=== PATIENT | female | born 1980 | race Caucasian/White ===

== ENCOUNTER 2017-03-11 12:17 | Emergency (ER) | payer OTHER ==
[2017-03-11 12:26] VITALS: BP 128/76; PULSE 50; RESP 14; TEMP 98.2; O2SAT 96
--- NOTE | 2017-03-11 12:41 | UCPHY ---
H & P Patient Type: New Chief Complaint Nursing Narrative: Left 4th finger inj smashed between tables. throbbing at tip. bruising noted. 9/10 PAIN. 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 She states that she smashed in between 2 tables at work. This happened about an hour ago. She took ibuprofen prior to coming. She is concerned about fracture. She also has bruising and a subungual hematoma. REVIEW OF SYSTEMS: Constitutional: denies: chills, fever, recent illness, recent injury EENTM: denies: blurred vision, double vision, nose congestion Respiratory: denies: cough, shortness of breath Cardiac: denies: chest pain, irregular heart rate, lightheadedness, palpitations Gastrointestinal/Abdominal: denies: abdominal pain, diarrhea, nausea, vomiting, blood streaked stools Genitourinary: denies: dysuria, frequency, hematuria, pain Musculoskeletal: See HPI Skin: denies: lesions, rash, jaundice, bruising Neurological: denies: headache, numbness, paresthesia, tingling, dizziness, weakness Hematologic/Lymphatic: denies: blood clots, easy bleeding, easy bruising Immunologic/allergic: denies: HIV/AIDS, transplant EXAM: GENERAL: Well-appearing, well-nourished and in no acute distress. HEAD: Atraumatic, normocephalic. EYES: Pupils equal round and reactive to light, extraocular movements intact, sclera anicteric, conjunctiva are normal. ENT: TMs normal, nares patent, oropharynx clear without exudates. Moist mucous membranes. NECK: Normal range of motion, supple without lymphadenopathy or JVD. LUNGS: Breath sounds clear to auscultation bilaterally and equal. No wheezes rales or rhonchi. HEART: Regular rate and rhythm without murmurs, rubs or gallops. ABDOMEN: Soft, nontender, normoactive bowel sounds. No guarding, no rebound. No masses appreciated. BACK: No CVA tenderness, no spinal tenderness, step-offs or deformities EXTREMITIES: Bruising to distal phalanx of left ring finger. Small subungual hematoma, no avulsion laceration NEUROLOGICAL: Cranial nerves II through XII grossly intact. Normal speech, normal gait. 5/5 strength, normal movement in all extremities, normal sensation PSYCH: Normal mood, normal affect. SKIN: Warm, dry, normal turgor, no visible rashes or lesions. Source: Patient Exam Limitations: No limitations - Personal History LMP (Females 10-55): 8-14 Days Ago - Medical/Surgical History Hx Asthma: No Hx Chronic Respiratory Disease: No Hx Diabetes: No Hx Cardiac Disease: No Hx Renal Disease: No Hx Cirrhosis: No Hx Alcoholism: No Other PMH: PCP Geovani. denies surgery - Family History Significant Family History: No pertinent family hx - Social History Smoking Status: Never smoked Alcohol Use: Sober Drug Use: None Constitutional: Initial Vital Signs Temperature (C) 36.8 C 03/11/17 12:20 Heart Rate 50 L 03/11/17 12:20 Respiratory Rate 14 03/11/17 12:20 Blood Pressure 128/76 H 03/11/17 12:20 O2 Sat (%) 96 03/11/17 12:20 O2 Delivery Mode Room Air Allergies/Adverse Reactions: No Known Allergies Allergy (Unverified 03/11/17 12:26) Home Medications: Medication Instructions Recorded NK [No Known Home Meds] 03/11/17 Medical Decision Making - Diagnostics Imaging: Imaging Impressions Finger X-Ray 03/11/17 12:27 Impression: Transverse nondisplaced fracture, distal phalanx, left fourth finger. Procedures: Finger trephination Patient's fingernail was trephinated twice with a cautery device. She tolerated the procedure well. She felt immediate improvement of pain. ED Course/Re-evaluation: patient has a small tuft fracture. Her fingernails in place for stenting. She does not require suture repair. Her fingernail was trephinated. She tolerated this well. Discussed follow-up and continued treatment. Differential Diagnosis: Partial list of the Differential diagnosis considered include but were not limited to; subungual hematoma, tuft fracture, nail bed laceration and although unlikely based on the history and physical exam, I also considered dislocation, infection, laceration. I discussed these differential diagnoses and the plan with the patient as well as the usual and expected course. The patient understands that the diagnosis is provisional and that in medicine we are not always correct and that further workup is often warranted. Usual and customary warnings were given. All of the patient's questions were answered. The patient was instructed to return to the emergency department should the symptoms at all worsen or return, otherwise to followup with the physician as we discussed. Departure - Departure Disposition: Home, Routine, Self-Care Clinical Impression: Subungual hematoma Distal phalanx or phalanges, closed fracture Qualifiers: Encounter type: initial encounter Finger: ring finger Fracture alignment: nondisplaced Laterality: left Qualified Code(s): S62.665A - Nondisplaced fracture of distal phalanx of left ring finger, initial encounter for closed fracture Condition: Fair Instructions: Subungual Hematoma (ED), Finger Fracture (ED) Referrals: NONE *PRIMARY CARE P,. [Primary Care Provider] - As per Instructions Juan Luis Winter MD [Medical Doctor] - As per Instructions Stand Alone Forms: Work Comp Follow Up - PQRS PQRS Measurement: Not applicable
== END 2017-03-11 13:18 | disposition home or self-care (01) ==
LOC: CED 12:17
PROC: 0H9QXZZ Drainage of Finger Nail, External Approach (ICD-10-PCS; principal; 2017-03-11)
DX: S62.665A Nondisplaced fracture of distal phalanx of left ring finger, initial encounter for closed fracture (principal); S60.142A Contusion of left ring finger with damage to nail, initial encounter; Y99.0 Civilian activity done for income or pay; W23.1XXA Caught, crushed, jammed, or pinched between stationary objects, initial encounter; Y92.59 Other trade areas as the place of occurrence of the external cause
CPT/HCPCS: 73140-PO; G0463-PO